=== PATIENT | male | born 1970 | race Caucasian/White ===

== ENCOUNTER 2022-07-23 15:37 | Observation (INO) | payer MEDICAID ==
[2022-07-23] MEDS ORDERED: SODIUM CHLORIDE 0.9% 1,000 ML IV STA (16:29)
[2022-07-23 16:51] LABS: Basophils % (A) 0 %; Eosinophils # (A) 0.1 k/uL (0-0.7); Eosinophils % (A) 1 %; HCT 44.4 % (39.0-53.0); HGB 15.3 gm/dL (13.0-17.5); Lymphocytes # (A) 0.3 k/uL (1.0-4.8); Lymphocytes % (A) 4 %; MCH 30.1 pg (25.0-35.0); MCHC 34.4 g/dL (31.0-37.0); MCV 87.4 fL (80.0-100.0); Mean Platelet Volume 7.8; Monocytes # (A) 0.3 k/uL (0-1.0); Monocytes % (A) 5 %; Neutrophils # (A) 6.2 k/uL (1.3-7.7); Neutrophils % (A) 89 %; Platelet Count 151 k/uL (150-450); RBC 5.09 m/uL (4.30-5.90)
[2022-07-23 17:05] LABS: ALT 71 U/L (4-49); AST 61 U/L (17-59); African American GFR (CKD) >90 (>60 ml/min/1.73 sqM); Albumin 3.8 g/dL (3.5-5.0); Alkaline Phosphatase 113 U/L (38-126); Anion Gap 6 mmol/L; Blood Urea Nitrogen 16 mg/dL (9-20); Calcium 8.3 mg/dL (8.4-10.2); Carbon Dioxide 26 mmol/L (22-30); Chloride 108 mmol/L (98-107); Glucose 86 mg/dL (74-99); Magnesium 2.4 mg/dL (1.6-2.3); Non-African American GFR(CKD) >90 (>60 ml/min/1.73 sqM); Potassium 4.5 mmol/L (3.5-5.1); Sodium 140 mmol/L (137-145); Total Bilirubin 0.9 mg/dL (0.2-1.3); Total Protein 6.1 g/dL (6.3-8.2)
--- NOTE | 2022-07-23 17:06 | ED ---
Syncope HPI - General Chief Complaint: Syncope Stated Complaint: Weakness Time Seen by Provider: 07/23/22 16:22 Source: patient, EMS, RN notes reviewed, old records reviewed Mode of arrival: EMS Limitations: no limitations - History of Present Illness Initial Comments: This is a 52-year-old male DF for evaluation patient Dese for evaluation regards to syncopal event patient woke up not feeling well feeling little bit off throughout the day. Patient went outside the pain came back inside felt significantly increasingly lightheaded collies the bathroom family heard fall and he noticed that he was unresponsive that he had passed out they called EMS patient presents to the ER agrees conditions he currently denies any headache chest pain shortness of breath or abdominal pain MD Complaint: loss of consciousness, felt faint -: minutes(s) Prodromal Symptoms: vision changes, lightheaded, palpitations -: second(s) Witnessed: no Injuries Sustained Associated with Event: None Current Symptoms: lightheaded History: previous syncopal episode (Near syncopal events) Context: during exertion - Related Data Home Medications Medication Instructions Recorded Confirmed Atorvastatin [Lipitor] 20 mg PO HS 07/23/22 07/23/22 Allergies Allergy/AdvReac Type Severity Reaction Status Date / Time No Known Allergies Allergy Verified 07/23/22 19:33 Review of Systems ROS Statement: Those systems with pertinent positive or pertinent negative responses have been documented in the HPI. ROS Other: All systems not noted in ROS Statement are negative. Past Medical History Past Medical History: Hyperlipidemia Additional Past Medical History / Comment(s): Hernia, Kidney Stones History of Any Multi-Drug Resistant Organisms: None Reported Past Surgical History: No Surgical Hx Reported Past Psychological History: No Psychological Hx Reported Smoking Status: Never smoker Past Alcohol Use History: Occasional Past Drug Use History: None Reported General Exam Limitations: no limitations General appearance: alert, in no apparent distress Head exam: Present: atraumatic, normocephalic, normal inspection Eye exam: Present: normal appearance, PERRL, EOMI. Absent: scleral icterus, conjunctival injection, periorbital swelling ENT exam: Present: normal exam, mucous membranes moist Neck exam: Present: normal inspection. Absent: tenderness, meningismus, lymphadenopathy Respiratory exam: Present: normal lung sounds bilaterally. Absent: respiratory distress, wheezes, rales, rhonchi, stridor Cardiovascular Exam: Present: regular rate, normal rhythm, normal heart sounds. Absent: systolic murmur, diastolic murmur, rubs, gallop, clicks GI/Abdominal exam: Present: soft, normal bowel sounds. Absent: distended, tenderness, guarding, rebound, rigid Extremities exam: Present: normal inspection, full ROM, normal capillary refill. Absent: tenderness, pedal edema, joint swelling, calf tenderness Back exam: Present: normal inspection Neurological exam: Present: alert, oriented X3, CN II-XII intact Psychiatric exam: Present: normal affect, normal mood Skin exam: Present: warm, dry, intact, normal color. Absent: rash Course Vital Signs 07/23/22 07/23/22 07/23/22 15:45 19:00 19:47 Temperature 98.0 F Pulse Rate 71 66 78 Respiratory 18 18 16 Rate Blood Pressure 117/76 110/68 115/79 O2 Sat by Pulse 99 98 Oximetry - Reevaluation(s) Reevaluation #1: 07/24/22 00:27 Medical record is reviewed Reevaluation #2: 07/24/22 00:27 Patient still has episodes where he feels like he may pass out here in the ER Reevaluation #3: 07/24/22 00:27 Patient informed results questions have been answered Reevaluation #4: 07/24/22 00:27 Was pt. sent in by a medical professional or institution? @ -no Did you speak to anyone other than the patient for history? @ -no Did you review nursing and triage notes? @ -agree Were old charts reviewed? @ -no Differential Diagnosis? @ -prior EKG interpreted by me (3pts min.)? @ -yes X-rays interpreted by me (1pt min.)? @ -yes CT interpreted by me (1pt min.)? @ -no U/S interpreted by me (1pt. min.)? @ -no What testing was considered but not performed? (CT, X-rays, U/S, labs)? Why? @ -no What meds were considered but not given? Why? @ -no Did you discuss the management of the patient with other professionals? @ -no Did you reconcile home meds? @ -no Was smoking cessation discussed for >3mins.? @ -no Was critical care preformed (if so, how long)? @ -no Were there social determinants of health that impacted care today? How? (Homelessness, low income, unemployed, alcoholism, drug addiction, transportation, low edu. Level, literacy, decrease access to med. care, long term, rehab)? @ -no Was there de-escalation of care discussed even if they declined? (Discuss DNR or withdrawal of care, Hospice)? @ -no What co-morbidities impacted this encounter? (DM, HTN, Smoking, COPD, CAD, Cancer, CVA, Hep., AIDS, mental health diagnosis, sleep apnea, morbid obesity)? @ -none Was patient admitted / discharged? @ - Undiagnosed new problem with uncertain prognosis? @ -no Drug Therapy requiring intensive monitoring for toxicity (Heparin, Nitro, Insulin, Cardizem)? @ -no Were any procedures done? @ -no Diagnosis/symptom? @ - Acute, or Chronic, or Acute on Chronic? @ -no Uncomplicated (without systemic symptoms) or Complicated (systemic symptoms)? @ -uncomplicated Side effects of treatment? @ -no Exacerbation, Progression, or Severe Exacerbation] @ -no Poses a threat to life or bodily function? @ -yes Reevaluation #5: 07/24/22 00:27 Differential Syncope: Valvular disease, hypertrophic cardiomyopathy, pulmonary embolism, tamponade, tachycardia, bradycardia, NM, hypovolemia, hemorrhage, dissection, anemia, intracranial hemorrhage, seizure, hypoglycemia, carbon monoxide poisoning, this is not meant to be an all-inclusive list. EKG Findings - EKG Comments: EKG Findings:: EKG is sinus 71 KS 159 QRS 92 QTC 415 Medical Decision Making - Medical Decision Making 52 male DF for syncopal event with recurrent near syncopal events here in the ER. Patient is imaging secondary to elevated d-dimer, does have abdominal pain decreased bowel movements and constipation on CT. Patient will be admitted for further evaluation of syncopal events - Lab Data Result diagrams: 07/23/22 16:31 07/23/22 16:31 Lab Results 07/23/22 07/23/22 07/23/22 Range/Units 16:31 16:31 16:31 WBC 7.0 (3.8-10.6) k/uL RBC 5.09 (4.30-5.90) m/uL Hgb 15.3 (13.0-17.5) gm/dL Hct 44.4 (39.0-53.0) % MCV 87.4 (80.0-100.0) fL MCH 30.1 (25.0-35.0) pg MCHC 34.4 (31.0-37.0) g/dL RDW 13.0 (11.5-15.5) % Plt Count 151 (150-450) k/uL MPV 7.8 Neutrophils % 89 % Lymphocytes % 4 % Monocytes % 5 % Eosinophils % 1 % Basophils % 0 % Neutrophils # 6.2 (1.3-7.7) k/uL Lymphocytes # 0.3 L (1.0-4.8) k/uL Monocytes # 0.3 (0-1.0) k/uL Eosinophils # 0.1 (0-0.7) k/uL Basophils # 0.0 (0-0.2) k/uL PT 10.3 (9.0-12.0) sec INR 1.0 (<1.2) APTT 20.4 L (22.0-30.0) sec D-Dimer 0.54 (<0.60) mg/L FEU Sodium 140 (137-145) mmol/L Potassium 4.5 (3.5-5.1) mmol/L Chloride 108 H (98-107) mmol/L Carbon Dioxide 26 (22-30) mmol/L Anion Gap 6 mmol/L BUN 16 (9-20) mg/dL Creatinine 0.62 L (0.66-1.25) mg/dL Est GFR (CKD-EPI)AfAm >90 (>60 ml/min/1.73 sqM) Est GFR (CKD-EPI)NonAf >90 (>60 ml/min/1.73 sqM) Glucose 86 (74-99) mg/dL Plasma Lactic Acid Alfonzo (0.7-2.0) mmol/L Calcium 8.3 L (8.4-10.2) mg/dL Phosphorus 3.0 (2.5-4.5) mg/dL Magnesium 2.4 H (1.6-2.3) mg/dL Total Bilirubin 0.9 (0.2-1.3) mg/dL AST 61 H (17-59) U/L ALT 71 H (4-49) U/L Alkaline Phosphatase 113 (38-126) U/L Troponin I (0.000-0.034) ng/mL NT-Pro-B Natriuret Pep pg/mL Total Protein 6.1 L (6.3-8.2) g/dL Albumin 3.8 (3.5-5.0) g/dL 07/23/22 07/23/22 07/23/22 Range/Units 16:31 16:31 16:31 WBC (3.8-10.6) k/uL RBC (4.30-5.90) m/uL Hgb (13.0-17.5) gm/dL Hct (39.0-53.0) % MCV (80.0-100.0) fL MCH (25.0-35.0) pg MCHC (31.0-37.0) g/dL RDW (11.5-15.5) % Plt Count (150-450) k/uL MPV Neutrophils % % Lymphocytes % % Monocytes % % Eosinophils % % Basophils % % Neutrophils # (1.3-7.7) k/uL Lymphocytes # (1.0-4.8) k/uL Monocytes # (0-1.0) k/uL Eosinophils # (0-0.7) k/uL Basophils # (0-0.2) k/uL PT (9.0-12.0) sec INR (<1.2) APTT (22.0-30.0) sec D-Dimer (<0.60) mg/L FEU Sodium (137-145) mmol/L Potassium (3.5-5.1) mmol/L Chloride (98-107) mmol/L Carbon Dioxide (22-30) mmol/L Anion Gap mmol/L BUN (9-20) mg/dL Creatinine (0.66-1.25) mg/dL Est GFR (CKD-EPI)AfAm (>60 ml/min/1.73 sqM) Est GFR (CKD-EPI)NonAf (>60 ml/min/1.73 sqM) Glucose (74-99) mg/dL Plasma Lactic Acid Alfonzo 1.6 (0.7-2.0) mmol/L Calcium (8.4-10.2) mg/dL Phosphorus (2.5-4.5) mg/dL Magnesium (1.6-2.3) mg/dL Total Bilirubin (0.2-1.3) mg/dL AST (17-59) U/L ALT (4-49) U/L Alkaline Phosphatase (38-126) U/L Troponin I <0.012 (0.000-0.034) ng/mL NT-Pro-B Natriuret Pep 39 pg/mL Total Protein (6.3-8.2) g/dL Albumin (3.5-5.0) g/dL - Radiology Data Radiology results: report reviewed (CT chest is negative for PE CT head and pelvis is positive for retained stool), image reviewed Disposition Clinical Impression: Syncope, Dehydration, Vasovagal syncope, Nausea & vomiting Disposition: ADMITTED IP TO THIS HOSP Condition: Good Is patient prescribed a controlled substance at d/c from ED?: No
[2022-07-23 17:12] LABS: Prothrombin Time 10.3 sec (9.0-12.0)
[2022-07-23 17:42] LABS: Partial Thromboplastin Time 20.4 sec (22.0-30.0)
--- NOTE | 2022-07-23 18:39 | CT ---
EXAMINATION TYPE: CT angio chest CT DLP: 353.1 mGycm, Automated exposure control for dose reduction was used. DATE OF EXAM: 07/23/2022 6:20 PM None CLINICAL INDICATION:Male, 52 years old with history of pe; c/o syncopal episode TECHNIQUE/CONTRAST: CTA scan of the thorax is performed with IV Contrast, patient injected with 100 mL of Isovue 370, pul monary embolism protocol. MIP images are created and reviewed these [facility] FINDINGS: Pulmonary Artery: There is no evidence for a filling defect within the pulmonary vasculature to sugge st acute pulmonary embolism. The pulmonary artery is of normal size. Lungs/Pleura: No evidence of focal consolidation, pleural effusion or pneumothorax. Airway: Large airways are patent. Heart: Heart is within normal limits for size. Vasculature: No evidence of aortic aneurysm. Mediastinum: No gross evidence of adenopathy. Musculoskeletal: No acute osseous abnormalities Soft Tissues: Unremarkable. Lower neck: No significant findings. Upper Abdomen: Nonobstructing left renal calculus measuring 3 mm. IMPRESSION: No evidence of pulmonary embolism.
[2022-07-23] MEDS ORDERED: SODIUM CHLORIDE 0.9% 500 ML 500 ML IV STA (19:22)
[2022-07-23] MEDS ORDERED: NALOXONE 0.4 MG/ML 1 ML VIAL IV PRN (19:22)
[2022-07-23] MEDS ORDERED: MORPHINE SULFATE 4 MG/ML SYRINGE IV PRN (19:22)
[2022-07-23] MEDS ORDERED: SODIUM CHLORIDE 0.9% 1,000 ML IV SCH (19:30)
--- NOTE | 2022-07-23 20:02 | CT ---
EXAMINATION TYPE: CT abdomen pelvis wo con CT DLP: 545.5 mGycm, Automated exposure control for dose reduction was used. DATE OF EXAM: 07/23/2022 7:43 PM COMPARISON: none CLINICAL INDICATION:Male, 52 years old with history of pain; flank pain TECHNIQUE: Axial CT of the abdomen and pelvis. Sagittal and coronal reformats were created on a [employer] workstation. Contrast used: No contrast for this examination and contrast was administered over 1 hour ago for add itional exam. Oral contrast used: without Oral Contrast FINDINGS: LOWER CHEST: Unremarkable ABDOMEN LIVER: Unremarkable GALLBLADDER AND BILE DUCTS: Unremarkable. PANCREAS: Unremarkable. SPLEEN: Unremarkable. ADRENAL GLANDS: Unremarkable. KIDNEYS AND URETERS: Excreted IV contrast from prior exam is seen within the collecting systems. No e vidence of hydronephrosis or renal calculus. The ureters are unremarkable. PELVIS BLADDER: Excreted IV contrast seen within the bladder. Bladder is grossly unremarkable REPRODUCTIVE: Prostate is enlarged in size measuring 4.9 cm in transverse dimension. Vasectomy clips are in the scrotum bilaterally. ABDOMEN & PELVIS STOMACH AND BOWEL: No evidence of bowel obstruction. Large stool burden throughout the rectum and sig moid colon. PERITONEUM/RETROPERITONEUM: No evidence of pneumoperitoneum or free fluid. VASCULATURE: No evidence of aortic aneurysm. MUSCULOSKELETAL: No acute osseous abnormalities LYMPH NODES: No gross evidence for lymphadenopathy. SOFT TISSUE/ABDOMINAL WALL: Fat-containing umbilical hernia. IMPRESSION: 1. No evidence of obstructive uropathy, limited evaluation for urolithiasis secondary to excreted IV contrast from prior study. 2. No acute abdominal process visualized. 3. Prostatomegaly correlate serum PSA. 4. Large stool burden throughout the rectum and sigmoid colon.
[2022-07-23] MEDS: ONDANSETRON 4 MG/2 ML VIAL IVP PRN (20:28)
[2022-07-23] MEDS: SODIUM CHLORIDE 0.9% 1,000 ML IV SCH (21:15)
[2022-07-24] MEDS: ONDANSETRON 4 MG/2 ML VIAL IVP PRN (04:55)
[2022-07-24] MEDS: SODIUM CHLORIDE 0.9% 1,000 ML IV SCH ×2 (04:55→09:55)
[2022-07-24] MEDS ORDERED: SODIUM CHLORIDE 0.9% 500 ML 500 ML IV ONE (08:22)
[2022-07-24 08:33] VITALS: BP 128/75; PULSE 76; RESP 15; TEMP 98.6
[2022-07-24] MEDS ORDERED: PANTOPRAZOLE 40 MG/10 ML VIAL IV SCH (09:00)
--- NOTE | 2022-07-24 10:20 | P.CRDCN ---
History of Present Illness History of present illness: HISTORY OF PRESENT ILLNESS: This is a 52-year-old male with a past medical history significant for hyperlipidemia. Patient does not follow with a progress clerk. We have been asked to see the patient in consultation for syncope. Patient examined at the bedside. Patient states he was feeling off all day yesterday but is vague in his description and unable to further describe his symptoms. He states that he was outside painting and started to feel sick and nauseated and lightheaded. He states that he sat down for a few minutes and then decided to walk into the house. He states that as he was walking to the house he remembers feeling lightheaded. He went into the bathroom and apparently was standing getting ready to sit down to use the bathroom and had a syncopal episode. He states that his was there at the time and he was only out for a few seconds. He does not remember passing out. He states when he came to he threw up and was diaphoretic. He denies any fever or chills. He denies being around anyone who is sick. He denies any chest pain or pressure. Denies shortness of breath. Vital signs are stable. Orthostatic blood pressures were unremarkable. * EKG reveals sinus mechanism with no signs of acute ischemia * Chest CTA: Negative for PE * Laboratory data: WBC 7.0. Hemoglobin 15.3. Platelet count 151. D-dimer 0.54. Sodium 140. Potassium 4.5. BUN 16. Creatinine 0.62. AST 61. ALT 71. Troponin negative 3. ProBNP 39. * Current home cardiac medications include Lipitor 20 mg at night REVIEW OF SYSTEMS: At the time of my exam: CONSTITUTIONAL: Denies fever or chills. HEENT: Denies blurred vision, vision changes, or eye pain. Denies hemoptysis CARDIOVASCULAR: Denies chest pain. Denies orthopnea. Denies PND. Denies palpitations RESPIRATORY: Denies shortness of breath. GASTROINTESTINAL: Denies abdominal pain. Denies nausea or vomiting. HEMATOLOGIC: Denies bleeding disorders. GENITOURINARY: Denies any blood in urine. SKIN: Denies pruitis. Denies rash. PHYSICAL EXAM: VITAL SIGNS: Reviewed. GENERAL: Well-developed in no acute distress. HEENT: Head is normocephalic. Pupils are equal, round. Sclerae anicteric. Mucous membranes of the mouth are moist. Neck supple. No JVD or thyromegaly LUNGS: Respirations even and unlabored. Lungs essentially clear to auscultation bilaterally. HEART: Regular rate and rhythm. S1 and S2 heard. ABDOMEN: Soft. Nondistended. Nontender. EXTREMITIES: Normal range of motion. No clubbing or cyanosis. Peripheral pulses intact. No lower extremity edema NEUROLOGIC: Awake and alert. Oriented x 3. ASSESSMENT: Syncope, likely orthostatic hypotension/vagal episode Hyperlipidemia Mildly elevated LFTs PLAN: Obtain 2-D echo to assess cardiac structure and function Give 500 mL bolus of normal saline Orthostatic blood pressures were checked and unremarkable Continue telemetry monitoring Check patient for Covid and influenza Further recommendations pending patient's course Nurse practitioner note has been reviewed by physician. Signing provider agrees with the documented findings, assessment, and plan of care. Past Medical History Past Medical History: Hyperlipidemia Additional Past Medical History / Comment(s): Hernia, Kidney Stones History of Any Multi-Drug Resistant Organisms: None Reported Past Surgical History: No Surgical Hx Reported Past Psychological History: No Psychological Hx Reported Smoking Status: Never smoker Past Alcohol Use History: Occasional Past Drug Use History: None Reported Medications and Allergies Home Medications Medication Instructions Recorded Confirmed Type Atorvastatin [Lipitor] 20 mg PO HS 07/23/22 07/23/22 History Allergies Allergy/AdvReac Type Severity Reaction Status Date / Time No Known Allergies Allergy Verified 07/23/22 19:33 Physical Exam Vitals: Vital Signs Temp Pulse Resp BP Pulse Ox 07/24/22 05:10 94 16 111/77 99 07/23/22 23:00 75 16 103/74 98 07/23/22 19:47 78 16 115/79 07/23/22 19:00 66 18 110/68 98 07/23/22 15:45 98.0 F 71 18 117/76 99 Intake and Output 07/23/22 07/24/22 07/24/22 22:59 06:59 14:59 Other: Weight 77.111 kg Results 07/23/22 16:31 07/23/22 16:31 Cardiac Enzymes 07/23/22 07/23/22 07/23/22 Range/Units 16:31 16:31 20:26 AST 61 H (17-59) U/L Troponin I <0.012 <0.012 (0.000-0.034) ng/mL 07/24/22 Range/Units 00:06 AST (17-59) U/L Troponin I <0.012 (0.000-0.034) ng/mL Coagulation 07/23/22 Range/Units 16:31 PT 10.3 (9.0-12.0) sec APTT 20.4 L (22.0-30.0) sec CBC 07/23/22 Range/Units 16:31 WBC 7.0 (3.8-10.6) k/uL RBC 5.09 (4.30-5.90) m/uL Hgb 15.3 (13.0-17.5) gm/dL Hct 44.4 (39.0-53.0) % Plt Count 151 (150-450) k/uL Comprehensive Metabolic Panel 07/23/22 Range/Units 16:31 Sodium 140 (137-145) mmol/L Potassium 4.5 (3.5-5.1) mmol/L Chloride 108 H (98-107) mmol/L Carbon Dioxide 26 (22-30) mmol/L BUN 16 (9-20) mg/dL Creatinine 0.62 L (0.66-1.25) mg/dL Glucose 86 (74-99) mg/dL Calcium 8.3 L (8.4-10.2) mg/dL AST 61 H (17-59) U/L ALT 71 H (4-49) U/L Alkaline Phosphatase 113 (38-126) U/L Total Protein 6.1 L (6.3-8.2) g/dL Albumin 3.8 (3.5-5.0) g/dL Current Medications Generic Name Dose Route Start Last Admin Trade Name Freq PRN Reason Stop Dose Admin Sodium Chloride 1,000 mls @ 130 mls/hr 07/23/22 19:30 07/24/22 04:55 Saline 0.9% IV 130 mls/hr .[id number] PAPI Administration Morphine Sulfate 4 mg 07/23/22 19: Morphine Sulfate 4 Mg/Ml Syringe IV Q4HR PRN Severe Pain (Scale 7 to 10) Naloxone HCl 0.2 mg 07/23/22 19: Naloxone 0.4 Mg/Ml 1 Ml Vial IV Q2M PRN Opioid Reversal Ondansetron HCl 4 mg 07/23/22 19:22 07/24/22 04:55 Ondansetron 4 Mg/2 Ml Vial IVP 4 mg Q8HR PRN Administration Nausea And Vomiting Pantoprazole Sodium 40 mg 07/24/22 09:00 Pantoprazole 40 Mg/10 Ml Vial IV DAILY PAPI Intake and Output 07/23/22 07/24/22 07/24/22 22:59 06:59 14:59 Other: Weight 77.111 kg 07/23/22 16:31 07/23/22 16:31
[2022-07-24 10:59] LABS: Basophils # (A) 0.01 X 10*3/uL (0.00-0.10); Basophils % (A) 0.3 %; Eosinophils # (A) 0.03 X 10*3/uL (0.04-0.35); Eosinophils % (A) 0.9 %; HCT 40.6 % (39.6-50.0); HGB 13.6 g/dL (13.0-17.0); Immature Grans, Automated 0.3 %; Lymphocytes # (A) 0.32 X 10*3/uL (0.90-5.00); Lymphocytes % (A) 9.1 %; MCHC 33.5 g/dL (32.0-37.0); MCV 86.6 fL (80.0-97.0); Mean Platelet Volume 8.8 fL (9.5-12.2); Monocytes # (A) 0.26 X 10*3/uL (0.20-1.00); Monocytes % (A) 7.4 %; NRBC Per 100 WBC 0 /100 WBCS (0.0-0.0); Neutrophils # (A) 2.88 X 10*3/uL (1.80-7.70); Platelet Count 137 X 10*3/uL (140-440); RBC 4.69 X 10*6/uL (4.40-5.60); RDW 12.9 % (11.5-14.5); WBC 3.51 X 10*3/uL (4.50-10.00)
[2022-07-24 11:12] LABS: African American GFR (CKD) 124.4 (60.0-200.0); Albumin 3.7 g/dL (3.8-4.9); Albumin/Globulin Ratio 2.25 (1.60-3.17); Anion Gap 8.2 mmol/L (10.00-18.00); BUN/Creat Ratio 15.25 Ratio (12.00-20.00); Blood Urea Nitrogen 10.6 mg/dL (9.0-27.0); Calcium 7.9 mg/dL (8.7-10.3); Carbon Dioxide 23.2 mmol/L (20.0-27.5); Globulin 1.7 g/dL (1.6-3.3); Magnesium 2.2 mg/dL (1.5-2.4); Non-African American GFR(CKD) 107.3 (60.0-200.0); Phosphorus 2.5 mg/dL (2.4-5.1); Potassium 4.1 mmol/L (3.5-5.5); Total Bilirubin 0.8 mg/dL (0.30-1.20); Total Protein 5.4 g/dL (6.2-8.2)
--- NOTE | 2022-07-24 13:23 | P.HPIM ---
History of Present Illness H&P Date: 07/24/22 History of present illness; patient is a 52-year-old gentleman with past medical history significant for hyperlipidemia presented to the ER because of syncopal episode. Patient stated that he woke up yesterday not feeling well, he was competing of lethargy and weakness. Patient went to the restroom and there he passed out, family heard him falling and they called EMS. The patient regained his consciousness and was acting normal. There was no evidence of any fecal or urine incontinence. No complaint of weakness of any extremity. There was no chest pain or shortness of breath. Patient was brought to the ER of [facility]. Initial blood work done in the ER showed white count 7, hemoglobin 15.3, platelet count 151, sodium 140, potassium 4.5, BUN 16, creatinine 0.62, CTA chest done showed no evidence of PE CT abdominal and pelvis showed no evidence of obstructive uropathy, no acute abdominal process visualized, showed large stool burden Patient was admitted to internal medicine for further evaluation and treatment REVIEW OF SYSTEMS: CONSTITUTIONAL: No fever, no malaise, no fatigue. HEENT: No recent visual problems or hearing problems. Denied any sore throat. CARDIOVASCULAR: No chest pain, orthopnea, PND, no palpitations, no syncope. PULMONARY: No shortness of breath, no cough, no hemoptysis. GASTROINTESTINAL: No diarrhea, no nausea, no vomiting, no abdominal pain. NEUROLOGICAL: No headaches, no weakness, no numbness. HEMATOLOGICAL: Denies any bleeding or petechiae. GENITOURINARY: Denies any burning micturition, frequency, or urgency. MUSCULOSKELETAL/RHEUMATOLOGICAL: Denies any joint pain, swelling, or any muscle pain. ENDOCRINE: Denies any polyuria or polydipsia. The rest of the 14-point review of systems is negative. PHYSICAL EXAMINATION: GENERAL: The patient is alert and oriented x3, not in any acute distress. Well developed, well nourished. HEENT: Pupils are round and equally reacting to light. EOMI. No scleral icterus. No conjunctival pallor. Normocephalic, atraumatic. No pharyngeal erythema. No thyromegaly. CARDIOVASCULAR: S1 and S2 present. No murmurs, rubs, or gallops. PULMONARY: Chest is clear to auscultation, no wheezing or crackles. ABDOMEN: Soft, nontender, nondistended, normoactive bowel sounds. No palpable organomegaly. MUSCULOSKELETAL: No joint swelling or deformity. EXTREMITIES: No cyanosis, clubbing, or pedal edema. NEUROLOGICAL: Gross neurological examination did not reveal any focal deficits. SKIN: No rashes. Assessment and plan Syncope Constipation Hyperlipidemia Plan; Monitor vital signs Monitor CBC monitor CMP Continue telemetry monitoring Results of CT chest and CT abdominal and pelvis noted 2-D echo ordered Consult cardiology DVT prophylaxis: Past Medical History Past Medical History: Hyperlipidemia Additional Past Medical History / Comment(s): Hernia, Kidney Stones History of Any Multi-Drug Resistant Organisms: None Reported Past Surgical History: No Surgical Hx Reported Past Psychological History: No Psychological Hx Reported Smoking Status: Never smoker Past Alcohol Use History: Occasional Past Drug Use History: None Reported Medications and Allergies Home Medications Medication Instructions Recorded Confirmed Type Atorvastatin [Lipitor] 20 mg PO HS 07/23/22 07/23/22 History Allergies Allergy/AdvReac Type Severity Reaction Status Date / Time No Known Allergies Allergy Verified 07/23/22 19:33 Physical Exam Vitals: Vital Signs Temp Pulse Pulse Pulse Pulse Pulse Resp 07/24/22 08:33 78 82 76 07/24/22 08:25 98.6 F 76 15 07/24/22 08:13 78 18 07/24/22 05:10 94 16 07/23/22 23:00 75 16 07/23/22 19:47 78 16 07/23/22 19:00 66 18 07/23/22 15:45 98.0 F 71 18 BP BP BP BP Pulse Ox 07/24/22 08:33 130/77 128/81 128/75 07/24/22 08:25 128/75 97 07/24/22 08:13 124/78 99 07/24/22 05:10 111/77 99 07/23/22 23:00 103/74 98 07/23/22 19:47 115/79 07/23/22 19:00 110/68 98 07/23/22 15:45 117/76 99 Intake and Output 07/23/22 07/24/22 07/24/22 22:59 06:59 14:59 Intake Total 400 Balance 400 Intake: Oral 400 Other: Weight 77.111 kg Results CBC & Chem 7: 07/24/22 06:59 07/24/22 06:59 Labs: Abnormal Lab Results - Last 24 Hours (Table) 07/23/22 07/23/22 07/23/22 Range/Units 16:31 16:31 16:31 Lymphocytes # 0.3 L (1.0-4.8) k/uL APTT 20.4 L (22.0-30.0) sec Chloride 108 H (98-107) mmol/L Creatinine 0.62 L (0.66-1.25) mg/dL Calcium 8.3 L (8.4-10.2) mg/dL Magnesium 2.4 H (1.6-2.3) mg/dL AST 61 H (17-59) U/L ALT 71 H (4-49) U/L Total Protein 6.1 L (6.3-8.2) g/dL
--- NOTE | 2022-07-24 13:26 | CA ---
Transthoracic Echo Report Name: Jesus Henry Age: 52 Gender: M : 1970 Exam Date: 07/24/2022 09:04 Exam Location: [facility] Ht (in): 71 Wt (lb): 170 Ordering Physician: Jolynn Babb Attending/Referring Phys: [id number], [employer] Zita Le RDCS Procedure CPT: Indications: LV function, syncope Cardiac Hx: Technical Quality: Contrast 1: Total Dose (mL): Contrast 2: Total Dose (mL): MEASUREMENTS (Male / Female) Normal Values 2D ECHO LV Diastolic Diameter PLAX 4.6 cm 4.2 - 5.9 / 3.9 - 5.3 cm LV Systolic Diameter PLAX 3.1 cm IVS Diastolic Thickness 1.1 cm 0.6 - 1.0 / 0.6 - 0.9 cm LVPW Diastolic Thickness 1.0 cm 0.6 - 1.0 / 0.6 - 0.9 cm LV Relative Wall Thickness 0.5 RV Internal Dim ED PLAX 3.0 cm LA Systolic Diameter LX 3.1 cm 3.0 - 4.0 / 2.7 - 3.8 cm LV Diastolic Volume MOD 4C 109.8 cm??? LV Systolic Volume MOD 4C 52.8 cm??? LV Ejection Fraction MOD 4C 51.9 % LV Diastolic Length 4C 8.2 cm LV Systolic Length 4C 6.6 cm LV Diastolic Volume MOD 2C 82.7 cm??? LV Systolic Volume MOD 2C 29.8 cm??? LV Ejection Fraction MOD 2C 64.0 % LV Diastolic Length 2C 8.7 cm LV Systolic Length 2C 6.7 cm LA Volume 39.5 cm??? 18 - 58 / 22 - 52 cm??? M-MODE Aortic Root Diameter MM 3.2 cm AV Cusp Separation MM 2.5 cm DOPPLER AV Peak Velocity 133.3 cm/s AV Peak Gradient 7.1 mmHg MV Area PHT 5.0 cm??? Mitral E Point Velocity 88.0 cm/s Mitral A Point Velocity 93.9 cm/s Mitral E to A Ratio 0.9 MV Deceleration Time 151.5 ms MV E' Velocity 8.5 cm/s Mitral E to MV E' Ratio 10.3 TR Peak Velocity 225.2 cm/s TR Peak Gradient 20.3 mmHg Right Ventricular Systolic Press 24.9 mmHg FINDINGS Left Ventricle Left ventricular ejection fraction is estimated at 55-60 %. Left ventricular cavity size normal. Mildly increased septal wall thickness. Right Ventricle Normal right ventricular size and function. Right ventricular systolic pressure within normal limits. Right Atrium Normal right atrial size. Left Atrium Normal left atrial size. Mitral Valve Structurally normal mitral valve. Mild mitral regurgitation. Aortic Valve Trileaflet aortic valve. Mild aortic regurgitation. Tricuspid Valve Structurally normal tricuspid valve. Mild tricuspid regurgitation. Pulmonic Valve Structurally normal pulmonic valve. Trace pulmonic regurgitation. Pericardium Normal pericardium. No pericardial effusion. Aorta Normal size aortic root and proximal ascending aorta. CONCLUSIONS LVH with preserved systolic function Previewed by: Dr. Vaibhav Casper MD (Electronically Signed) Final Date: 24 Jul 2022 13:25
--- NOTE | 2022-07-24 14:57 | P.DS ---
Providers Date of admission: 07/23/22 19:22 Expected date of discharge: 07/24/22 Attending physician: Pinky Gutiérrez Consults: 07/23/22 19:22 Consult Physician Routine Consulting Provider: Ruchi Willson Consult Reason/Comments: syncope Do you want consulting provider notified?: Yes Primary care physician: Feliberto Day DO Hospital Course: Discharge diagnoses; Syncope Constipation Hyperlipidemia Hospital course; patient is a 52-year-old gentleman with past medical history significant for hyperlipidemia presented to the ER because of syncopal episode. Patient stated that he woke up yesterday not feeling well, he was competing of lethargy and weakness. Patient went to the restroom and there he passed out, family heard him falling and they called EMS. The patient regained his consciousness and was acting normal. There was no evidence of any fecal or urine incontinence. No complaint of weakness of any extremity. There was no chest pain or shortness of breath. Patient was brought to the ER of [facility]. Initial blood work done in the ER showed white count 7, hemoglobin 15.3, platelet count 151, sodium 140, potassium 4.5, BUN 16, creatinine 0.62, CTA chest done showed no evidence of PE CT abdominal and pelvis showed no evidence of obstructive uropathy, no acute abdominal process visualized, showed large stool burden Patient was admitted to internal medicine for further evaluation and treatment Patient was seen by cardiology, they believe syncope was most probably secondary to vasovagal/orthostatic. Echo done did not show any wall motion abnormalities or valvular abnormalities. Cardiology recommended outpatient follow-up PHYSICAL EXAMINATION: GENERAL: The patient is alert and oriented x3, not in any acute distress. Well developed, well nourished. HEENT: Pupils are round and equally reacting to light. EOMI. No scleral icterus. No conjunctival pallor. Normocephalic, atraumatic. No pharyngeal erythema. No thyromegaly. CARDIOVASCULAR: S1 and S2 present. No murmurs, rubs, or gallops. PULMONARY: Chest is clear to auscultation, no wheezing or crackles. ABDOMEN: Soft, nontender, nondistended, normoactive bowel sounds. No palpable organomegaly. MUSCULOSKELETAL: No joint swelling or deformity. EXTREMITIES: No cyanosis, clubbing, or pedal edema. NEUROLOGICAL: Gross neurological examination did not reveal any focal deficits. SKIN: No rashes. Patient Condition at Discharge: Good Plan - Discharge Summary New Discharge Prescriptions: New Docusate [Colace] 100 mg PO BID #30 cap polyethylene glycoL 3350 [Miralax] 17 gm PO DAILY #30 packet Continue Atorvastatin [Lipitor] 20 mg PO HS Discharge Medication List Atorvastatin [Lipitor] 20 mg PO HS 07/23/22 [History] Docusate [Colace] 100 mg PO BID #30 cap 07/24/22 [Rx] polyethylene glycoL 3350 [Miralax] 17 gm PO DAILY #30 packet 07/24/22 [Rx] Follow up Appointment(s)/Referral(s): Hilario Magaña MD [STAFF PHYSICIAN] - 1 Week Feliberto Day DO [Primary Care Provider] - 1-2 days Patient Instructions/Handouts: Dehydration (DC), Syncope (DC) Discharge Disposition: HOME SELF-CARE
[2022-07-24] MEDS ORDERED: DOCUSATE 100 MG CAP PO SCH (21:00)
[2022-07-24] MEDS ORDERED: ATORVASTATIN 20 MG TAB PO SCH (21:00)
[2022-07-25] MEDS ORDERED: polyethylene glycoL 3350 17 GM POWD.PACK PO SCH (09:00)
== END 2022-07-24 15:15 | disposition home or self-care (01) ==
LOC: EC 15:37 → 6NMEDSUR 19:22
PROVIDERS: ADMIT Hospitalist; ATTEND Hospitalist
DX: R55 Syncope and collapse (principal); K59.00 Constipation, unspecified; E78.5 Hyperlipidemia, unspecified; R74.8 Abnormal levels of other serum enzymes; Z20.822 Contact with and (suspected) exposure to COVID-19; R53.83 Other fatigue; R53.1 Weakness; Z87.442 Personal history of urinary calculi; Z79.899 Other long term (current) drug therapy
CPT/HCPCS: 96376; 96361 ×2; 96374; 99285; 36415; 93005; 93306; 85379; 83880; 80053 ×2; 84443; 83605; 83735 ×2; 84100 ×2; 84484 ×2; 85025 ×2; 85610; 85730; 86140; 87636; 71275; 74176; G0378 ×2; J2405 ×2; Q9967

== ENCOUNTER 2023-01-08 19:32 | Outpatient (CLI) | payer MEDICAID ==
--- NOTE | 2023-01-10 13:19 | P.PCN ---
Description of Procedure: POLYSOMNOGRAPHY REPORT PROCEDURE(S)/DATE(S): Polysomnography 01/08/2023 CLINICAL: Patient has been seen in the sleep center for evaluation of obstructive sleep apnea-hypopnea syndrome. Please see my consultation. Sleep study has been done for evaluation of patient breathing during the sleep. PROCEDURE: The standard montage for clinical polysomnography included the electroencephalogram, the electrooculogram, the mentalis surface electromyography and Lead II cardiography. The respiratory battery consisted of measurements of nasal/buccal air flow, pressure transducer measurements from nose, thoracic and/or abdominal effort and intercostal surface electromyography. Video monitoring has been done to check for any parasomnia events. Nocturnal oxyhemoglobin saturations were obtained by finger oximetry. Step-davis titration with positive airway pressure was utilized to control the respiratory events, if necessary. RESULTS: During the diagnostic sleep study sleep efficiency was very short 66.3 %. Latency to sleep onset was normal 11.0 min. Sleep architecture showed stage NI was normal 8.5 %, Delta sleep was absent 0 %, REM sleep was borderline 19.8 %. Respiratory channel showed 0 obstructive apneas, 0 mixed apneas, 1 central apneas, 6 hypopneas with lowest oxygen level 90%. Total apnea hypopnea index was 1.4. Heart rate was in the range between 59 and 65, average 62. EMG showed 0.8 periodic limb movements per hour with 0.8 micro-arousals per hour. IMPRESSIONS: 1. No significant respiratory abnormalities have been documented during the sleep study, normal oxygenation during sleep. 2. No significant periodic limb movements have been documented. Please see other impressions from consultation PLAN: 1. Sleep hygiene with regular time in bed for at least 7-1/2 hours. 2. No driving if feeling sleepiness. Thank you very much for allowing me to participate in the management of your patient. Sincerely, Minh King MD, PhD, FAASM. Diplomat of [place] [employer], Sleep Medicine Board by [place] [employer] [facility] [place]
== END 2023-01-09 05:25 | disposition home or self-care (01) ==
LOC: 3 N SLEEP 19:32
PROVIDERS: ATTEND Internal Medicine
DX: G47.33 Obstructive sleep apnea (adult) (pediatric) (principal); G47.10 Hypersomnia, unspecified
CPT/HCPCS: 95810